=== PATIENT | female | born 1975 | race Caucasian/White ===

== ENCOUNTER → 2017-11-12 09:52 | Outpatient (CLI) | payer BC, SELFPAY ==
--- NOTE | 2017-11-12 | CA_ITS ---
PROCEDURE: 2-D M-mode and color Doppler study INDICATIONS FOR THE TEST: Chest pain COPD Heart Murmur Tobacco SmokingX Palpitations Fatigue Syncope Edema HypertensionXDiabetes Mellitus Rheumatic Fever SOBXDOE Obesity Hyperlipidemia Family History HDX Additional History PATIENT INFORMATION HEIGHT: 64 WEIGHT:157 GENDER: Female B/P:125/70 2-D/M-MODE INTERPRETATION: 2-D MEASUREMENTS OBSERVED VALUES IN CMS Right Ventricular Dimension (RVDd) 1.4 Interventricular Septum (Thickness)(IVsd) 1.1 Left Ventricular Internal Dimensions(LVIDd) 5.0 Left Ventricular Posterior Wall (Thickness)(LVPWd) 1.0 Aortic Root 3.4 Aortic Cusp Separation 1.9 Left Atrial Dimensions (LAD) 2.2 2D 1. Left atrium is mildly enlarged, left ventricle is normal size, mild concentric left ventricular hypertrophy, visually estimated ejection fraction 55% with no regional wall motion abnormality. 2. The right atrium and right ventricle are normal size and contractility. 3. The aortic valve is minimally thickened and fibrosed. 4. The mitral and tricuspid valvular grossly normal. 5. The pulmonic valve is poorly visualized. 6. No significant pericardial effusion noted. DOPPLER INTERROGATION: Doppler interrogation of the aortic, mitral and tricuspid valvular presence of mild mitral and tricuspid regurgitation, tricuspid regurgitation jet velocity is insufficient for calculation of the right ventricular systolic pressure, grade 1 diastolic dysfunction seen with tissue Doppler evidence of raised left atrial pressure. CONCLUSION: 1. Mildly enlarged left atrium, normal left ventricular size, mild concentric left ventricular hypertrophy, visually estimated ejection fraction 55% with no regional wall motion abnormality, grade 1 diastolic dysfunction seen with tissue Doppler evidence of raised left atrial pressure. 2. Mild mitral and tricuspid regurgitation 3. No significant pericardial effusion noted.
[2017-11-12 11:40] VITALS: PULSE 89; PULSE 94
== END ==
PROVIDERS: Family Provider Family Medicine; PCP Family Medicine; Visit Provider Physician Assistant
DX: R06.02 Shortness of breath (principal)
CPT/HCPCS: 93306; 94060; 94640; 94726; 94729

== ENCOUNTER → 2020-03-31 15:09 | Outpatient (CLI) | payer BC, SELFPAY ==
--- NOTE | 2020-03-31 15:14 | MM_ITS ---
PROCEDURE: MM DIG SCREENING MAMM BI W/CAD Digital Breast Tomosynthesis Included CLINICAL INDICATION: SCREENING There is no personal or family history of breast cancer. COMPARISON: TECHNIQUE: Standard CC and MLO images and 3D Tomosynthesis was obtained. R2 CAD reviewed. FINDINGS: Moderate diffuse fibroglandular densities are seen in the central portions of both breasts. There is a prominent nodular density aspect left breast with smooth borders and this likely is a cyst or fibroadenoma but since this is a baseline study recommend return for spot compression views and ultrasound examination. There are no suspicious microcalcifications. IMPRESSION: Moderate breast density with asymmetric nodular lesion left breast BI-RAD Category: 0 Need Additional Imaging Evaluation FOLLOW-UP: IMM Immediate Follow-up Recommended (A letter has been sent to the patient regarding results of the study.) Dictated by: Dr. Israel Chowdary MD 04/03/2020 10:00 Dr. Israel Chowdary MD in [place] 04/03/2020 10:00
--- NOTE | 2020-03-31 15:14 | US_ITS ---
PROCEDURE: US THYROID CLINICAL INDICATION: THYROMEGALY COMPARISON: US THY US THYROID from 08/12/2015 FINDINGS: Right lobe: 4.4 x 1.7 x2.5 cm. 6 x 3 mm ill-defined slightly hypoechoic nodule mid polar region only slightly more prominent. 4 mm slightly hypoechoic nodule mid polar region unchanged . Left lobe: 4.4 x 0.9 x 1.8 cm 2 mm hypoechoic nodule upper pole unchanged. Ill-defined hypoechoic area in the lower pole at a 5 x 4 mm. This shows some decreased echogenicity some peripherally and slight increased echogenicity centrally. This is not readily apparent on the previous exam. Isthmus: Unremarkable Additional findings: IMPRESSION: Mildly prominent thyroid gland with bilateral nodules. A new hypoechoic areas present in the lower pole on the left which has developed in the nearly 5 year. Between exams. Recommend six-month follow-up to confirm short term stability Dictated by: Quintin Nathan MD 04/01/2020 06:55 Quintin Nathan MD in [facility] 04/01/2020 06:55
== END ==
PROVIDERS: PCP Family Medicine; Visit Provider Physician Assistant
DX: E04.9 Nontoxic goiter, unspecified (principal); Z12.31 Encounter for screening mammogram for malignant neoplasm of breast
CPT/HCPCS: 76536; 77063; 77067

== ENCOUNTER → 2020-04-15 13:18 | Outpatient (CLI) | payer BC, SELFPAY ==
--- NOTE | 2020-04-15 13:24 | US_ITS ---
PROCEDURE: US BREAST LT COMPLETE CLINICAL INDICATION: ABN MAMM COMPARISON: Baseline mammogram 03/31/2020 an additional views 04/15/2020 FINDINGS: There is a small benign-appearing cystic lesion 2 o'clock position outer breast measuring 0.3 by 0.3 by point 2 cm. There is a somewhat suspicious hypoechoic solid lesion 2 o'clock position near the nipple which corresponds in size and location to the dominant density on the recent mammograms and problem solving views. It is taller than wide measuring 1.0 by 0.8 x 0.9 cm. The borders are somewhat ill-defined. There are 4-5 normal appearing nodes in the axilla. IMPRESSION: Hypoechoic solid mass with somewhat suspicious findings as described above and recommend the patient be scheduled for biopsy which probably could be performed with ultrasound guidance. Dictated by: Dr. Israel Chowdary MD 04/19/2020 10:37 Dr. Israel Chowdary MD in [place] 04/19/2020 10:37
--- NOTE | 2020-04-15 13:24 | MM_ITS ---
PROCEDURE: MM DIG MAMM DX UNILAT LT CAD Digital Breast Tomosynthesis Included CLINICAL INDICATION: ABN MAMM COMPARISON: MG MM DIG SCREENING MAMM BI W/CAD from 03/31/2020 US US BREAST LT COMPLETE from 04/15/2020 TECHNIQUE: Compression MLO and CC views were obtained along with 90 degree lateral view. FINDINGS: The dominant nodular density is well seen in the central portion of the breast and shows somewhat irregular border. Ultrasound exam performed same date showed a hypoechoic solid lesion taller than wide measuring 1.0 x 0.8 by 0.9 cm. Some of the border of the lesion is not well-defined on ultrasound examination. There are 4-5 normal appearing nodes in the axilla on the ultrasound exam. IMPRESSION: Dominant asymmetric solid lesion central portion right breast with somewhat suspicious findings on ultrasound exam with no sub previous studies for comparison and recommend follow-up biopsy which could be performed with ultrasound guidance BI-RAD Category: 4 Suspicious Abnormality - Biopsy Considered FOLLOW-UP: BIO Biopsy Recommended (A letter has been sent to the patient regarding results of the study.) Dictated by: Dr. Israel Chowdary MD 04/19/2020 10:32 Dr. Israel Chowdary MD in [place] 04/19/2020 10:32
== END ==
PROVIDERS: PCP Family Medicine; Visit Provider Physician Assistant
DX: R92.8 Other abnormal and inconclusive findings on diagnostic imaging of breast (principal)
CPT/HCPCS: 76641; 77061; 77065; G0279

== ENCOUNTER → 2020-05-04 12:16 | Outpatient (CLI) | payer BC, SELFPAY ==
--- NOTE | 2020-05-04 | MM_ITS ---
PROCEDURE: US BIOPSY GUIDANCE CLINICAL INDICATION: ABN MAMM Suspicious left breast nodule COMPARISON: MG MM DIG SCREENING MAMM BI W/CAD from 03/31/2020 US US BREAST LT COMPLETE from 04/15/2020 MG MM CLIP PLACEMENT LT from 05/04/2020 FINDINGS: Following obtaining informed consent and time-out procedure under aseptic conditions and local anesthesia with 1 percent buffered lidocaine and deeper anesthesia with lidocaine mixed with epinephrine, mammotome needle was inserted through the left breast nodule and multiple mammotome biopsies were obtained. Non ferromagnetic clip was then placed. The patient tolerated the procedure well without evidence of immediate complications and left the radiology suite in stable condition. Mammo clip placement: Post biopsy changes are present in the outer aspect of the left breast with clip in place in the region of the previously noted nodule. There is some residual density at the mammotome site and could be related to small amount of blood or residual nodule. The nodule does appear smaller compared to the pre biopsy exam. Pathology: Fibroadenoma. Negative for in situ or invasive carcinoma. IMPRESSION: Uneventful and successful mammotome biopsy of left breast showing benign findings/fibroadenoma. Suggest 6 month mammographic and sonographic follow-up per routine protocol Dictated by: Quintin Nathan MD 05/06/2020 09:41 Quintin Nathan MD in [place] 05/06/2020 09:41
== END ==
PROVIDERS: PCP Family Medicine; Visit Provider Physician Assistant
DX: R92.8 Other abnormal and inconclusive findings on diagnostic imaging of breast (principal)
CPT/HCPCS: 19083; 76942; 77065; C2618

== ENCOUNTER → 2020-05-18 12:45 | Outpatient (CLI) | payer BC, SELFPAY ==
--- NOTE | 2020-05-18 12:46 | CA_ITS ---
APPROVED REPORT Exam: Exercise Treadmill Technologist: Michelle Steiner Ht: 5 ft 5 in Wt: 165 lbs BSA: 1.82 m2 HR: 67 bpm BP: 114/85 mmHg Rhythm: nsr Medical History Medical History: HTN Medications: HCTZ,,,,, Amlod/Benazepril,,,,, Olmesartan,,,,, Omepazole,,,,, Allergies: No known drug allergies Cardiac Risk Factors: HTN, FHX of CAD Stress Test Details Test: Krystin HR Resting HR: 74 bpm Max Heart Rate (APMHR): 174 bpm Max HR Achieved: 153 bpm Target HR (85% APMHR): 147 bpm % of APMHR: 87 Recovery HR: 140 bpm BP Resting BP: 114/85 mmHg Max BP: 150/84 mmHg Recovery BP: 128.0/82.0 mmHg ECG Resting ECG: nsr Clinical Exercise duration: 07:28 min Highest Stage Achieved: Exercise capacity: 10.1 METs Stress ECG Conclusion EXCERCISED 7:28 ON KRYSTIN PROTOCOL WITH MAX HR 153 WHICH IS 88% OF PM FOR AGE. MAX BP 150/84. METS 10.1. TEST STOPPED DUE TO SOA, FATIGUE. NO CP. NO ARRHYTHMIAS. ALLOWING FOR MOTION ARTIFACT THE ST RESPONSE TP EXERCISE IS WITHIN NORMAL. NORMAL GXT. NO IMAGING. Test Summary REST . . . . . . . Standing REST . . . . . . . Sitting REST 04:04 0.0 0.0 74 . 114/ 85 . . Stage 1 01:00 10.0 1.7 96 . . . . Stage 1 02:00 10.0 1.7 101 . . . . Stage 1 03:00 10.0 1.7 112 . 136/ 76 . . Stage 2 01:00 12.0 2.5 119 . . . . Stage 2 02:00 12.0 2.5 129 . . . . Stage 2 03:00 12.0 2.5 136 . 150/ 84 . . Stage 3 01:00 14.0 3.4 150 . . . . Stage 3 01:28 14.0 3.4 153 . . . Stop exercise at 07:28 RECOVERY 01:00 0.0 0.0 140 . 128/ 82 . . RECOVERY 02:00 0.0 0.0 121 . 128/ 82 . . RECOVERY 03:00 0.0 0.0 107 . 128/ 82 . . RECOVERY 04:00 0.0 0.0 101 . 133/ 64 . . RECOVERY 05:00 0.0 0.0 106 . 133/ 64 . . RECOVERY 05:30 0.0 0.0 100 . 110/ 77 . . Electronically signed by : Myke Doyle, 05/19/2020 13:01:05
--- NOTE | 2020-05-18 12:46 | CA_ITS ---
APPROVED REPORT EXAM: Comprehensive 2D, Doppler, and color-flow Echocardiogram Clinical Manager Home Care: Loli Campbell RT(R) Ht: 5 ft 5 in Wt: 160lbs BSA: 1.80 BP: 134/80 mmHg Indications: CP, smoker, HTN, SOB, family history of HD 2D Dimensions LVOT 1.97 cm (M/F) 1.5-2.5 LVEF (Enrique's) 67.60 % F: 54 - 74 LV Volume 75.30 mL F: 46 - 106 LV Volume Index 41.83 mL/m2 F: 29 - 61 LA Volume 19.80 mL LA Volume Index 11.00 mL/m2 (M/F) 16-34 M-Mode Dimensions RVDd 2.70 cm (0.9-2.6) LA Diam 2.93 cm (1.9-4.0) LVDd 3.53 cm (3.5-5.7) Ao Diam 2.97 cm (2.0-3.7) LVDs 2.74 cm (3.5-5.7) IVSd 1.10 cm (0.6-1.1) PWd 1.18 cm (0.6-1.1) EF (Teich) 46.10% FS 22.40% EDV (Teich) 51.90 mL ESV (Teich) 28.00 mL LV Diastology E Decel Time 240.00 (160-240 msec) E/A Ratio 1.1 MED E' 7.60 (< 7 cm/sec) E'/MED E' Ratio 10.00 (>14) LAT E' 8.60 (<10 cm/sec) E/LAT E' Ratio 8.84 (>14) Mitral Valve MV E Max Titi. 76.00 (40-130 cm/s) MV A Velocity 71.00 (40-130 cm/s) E/A Ratio 1.07 MV Decel. Time 240.00 (160-240 ms) MV PHT 70.00 ms Left Ventricle Left atrium is mildly enlarged, left ventricle is normal size, mild concentric left ventricular hypertrophy, visually estimated ejection fraction 55% with no regional wall motion abnormality. Grade 1 diastolic dysfunction seen without tissue Doppler evidence of raise left atrial pressure. Right Ventricle Right atrium and right ventricle are normal size and contractility. Aortic Valve Aortic valve is minimally thickened and fibrosed, there is no aortic stenosis or aortic insufficiency. Mitral Valve Mitral valve is grossly normal, there is trace mitral regurgitation. Tricuspid Valve Tricuspid grossly normal, there is trace tricuspid regurgitation, tricuspid regurgitation jet velocity is inadequate for calculation of the right ventricular systolic pressure. Pulmonic Valve Pulmonic valve is poorly visualized. Great Vessels Aortic root is normal size. Pericardium No significant pericardial effusion noted. Conclusion 1. Mildly enlarged left atrium, normal left ventricular size, mild concentric left ventricular hypertrophy, visually estimated ejection fraction 55% with no regional wall motion abnormality, grade 1 diastolic dysfunction seen without tissue Doppler evidence of raise left atrial pressure. 2. Trace mitral and tricuspid regurgitation. 3. No significant pericardial effusion noted. Electronically signed by : Myke Doyle, 05/19/2020 15:24:39
--- NOTE | 2020-05-18 12:46 | CA_ITS ---
APPROVED REPORT Prep Room Supervisor: Lilly Guajardo RVT Laterality: Bilateral Study Quality: Excellent Indications: dizziness Risk Factors Hypertension: CAD, Doppler Spectral Velocity Analysis ECA (R) 77.00/18.20 cm/s ECA (L) 85.70/18.80 cm/s dICA (R) 72.70/31.00 cm/s dICA (L) 66.00/25.70 cm/s Capo (R) 73.80/27.80 cm/s Capo (L) 74.50/31.70 cm/s pICA (R) 86.60/25.70 cm/s pICA (L) 81.40/27.40 cm/s dCCA (R) 86.60/25.70 cm/s dCCA (L) 96.00/30.00 cm/s pCCA (R) 113.30/19.20 cm/s pCCA (L) 104.50/25.70 cm/s Vert (R) 52.30/14.60 cm/s Vert (L) 55.70/19.70 cm/s ICA/CCA 1.00 ICA/CCA 0.85 Findings Study suggests no evidence of stenosis of the bilateral internal cartoid artery. Antegrade flow seen bilateral vertebral arteries. Rt thyroid nodule seen. Conclusion Study suggests no evidence of stenosis of the bilateral internal cartoid artery. Antegrade flow seen bilateral vertebral arteries. Rt thyroid nodule seen. Electronically signed by : Siena Reyes, 05/18/2020 15:50:48
== END ==
PROVIDERS: PCP Family Medicine; Visit Provider Nurse Practitioner Family
DX: R06.00 Dyspnea, unspecified (principal); R07.9 Chest pain, unspecified; R42 Dizziness and giddiness; I10 Essential (primary) hypertension; N28.9 Disorder of kidney and ureter, unspecified; Z82.49 Family history of ischemic heart disease and other diseases of the circulatory system; Z87.891 Personal history of nicotine dependence
CPT/HCPCS: 93017; 93306; 93880; G0399

== ENCOUNTER → 2020-06-10 14:26 | Outpatient (CLI) | payer BC, SELFPAY ==
--- NOTE | 2020-06-10 14:26 | MR_ITS ---
PROCEDURE: MR HEAD/BRAIN WO CON CLINICAL INDICATION: vertigo, headaches Hx of hypertension. COMPARISON: No exams were available for comparison TECHNIQUE: Routine multiplanar multi echo sequences are performed without gadolinium enhancement. FINDINGS: No midline shift, mass effect, intracranial hemorrhage, or hydrocephalus. No evidence of restricted diffusion or acute infarction. The cerebellopontine angles, cerebellum, and brainstem have an unremarkable appearance. No mastoid effusion or sinus air-fluid levels evident. There is rightward nasal septal deviation. Partial empty sella is present. The optic chiasm, corpus callosum, and craniocervical junction are unremarkable. Flow void artifact is present [id number] vessels as expected. IMPRESSION: Negative MRI of the brain without contrast. No acute intracranial findings Dictated by: Quintin Nathan MD 06/11/2020 14:16 Quintin Nathan MD in [place] 06/11/2020 14:16
== END ==
PROVIDERS: PCP Family Medicine; Visit Provider Nurse Practitioner Family
DX: R42 Dizziness and giddiness (principal)
CPT/HCPCS: 70551

== ENCOUNTER → 2020-06-10 15:25 | Outpatient (CLI) | payer BC, SELFPAY ==
[2020-06-10 16:40] LABS: Thyroid Stimulating Hormone 1.56 uIU/mL (0.465-4.68)
[2020-06-10 17:15] LABS: Vitamin B12 318 pg/mL (239-931)
== END ==
PROVIDERS: Visit Provider Specialist
DX: R53.83 Other fatigue (principal)
CPT/HCPCS: 36415; 82607; 82746; 84443

== ENCOUNTER 2023-12-16 09:22 | Outpatient (CLI) | payer BC, SELFPAY ==
[2023-12-16 17:59] LABS: Coronavirus 19, PCR Not Detected (NotDetected); Influenza A, PCR Not Detected (NotDetected); Influenza B, PCR Not Detected (NotDetected)
== END 2023-12-16 23:59 | disposition home or self-care (01) ==
LOC: LAB.DROPOF 12-17 15:12
PROVIDERS: PCP Family Medicine; Visit Provider Student in an Organized Health Care Education/Training Program
DX: R09.81 Nasal congestion (principal)
CPT/HCPCS: 87636

== ENCOUNTER 2024-03-19 10:14 | Outpatient (CLI) | payer BC, SELFPAY | END 2024-03-19 23:59 | disposition home or self-care (01) | LOC: LAB.DROPOF 03-20 11:22 | PROVIDERS: PCP Student in an Organized Health Care Education/Training Program; Visit Provider Student in an Organized Health Care Education/Training Program | DX: J02.9 Acute pharyngitis, unspecified (principal); Z72.0 Tobacco use | CPT/HCPCS: 87070; 87077; 87186 ==

== ENCOUNTER 2024-10-15 15:40 | Outpatient (CLI) | payer BC, SELFPAY ==
--- NOTE | 2024-10-15 15:42 | MM_ITS ---
PROCEDURE INFORMATION: Exam: MG Bilateral Screening 3D Mammography Exam date and time: 10/15/2024 3:55 PM Age: 49 years old Clinical indication: Screening examination TECHNIQUE: Imaging protocol: Bilateral Screening tomosynthesis and 2D mammography including computer-aided detection (CAD) when performed. COMPARISON: 1. MG MM CLIP PLACEMENT LT 05/04/2020 2:35 PM 2. MG MM DIG MAMM DX UNILAT LT CAD 04/15/2020 1:37 PM FINDINGS: MAMMOGRAPHY: Breast composition: There are scattered areas of fibroglandular density. Mass: None. Architectural distortion: None. Calcifications: No suspicious calcifications. Asymmetric density: None. Skin thickening: None. Axillary adenopathy: None. IMPRESSION: No mammographic evidence of malignancy. Annual screening is recommended unless otherwise clinically indicated. ASSESSMENT: BI-RADS Category 1: Negative.
== END 2024-10-15 23:59 | disposition home or self-care (01) ==
LOC: RAD 15:40
PROVIDERS: PCP Physician Assistant; Visit Provider Physician Assistant
DX: Z12.31 Encounter for screening mammogram for malignant neoplasm of breast (principal); R92.323 Mammographic fibroglandular density, bilateral breasts
CPT/HCPCS: 77063; 77067